=== PATIENT | female | born 1965 | race Caucasian/White ===

== ENCOUNTER 2022-12-04 16:38 | Outpatient (CLI) | payer BC | END 2022-12-04 16:39 | disposition home or self-care (01) | LOC: CSHRAD 16:38 | PROVIDERS: ATTEND Internal Medicine Rheumatology | DX: M54.50 Low back pain, unspecified (principal); M54.6 Pain in thoracic spine; M47.816 Spondylosis without myelopathy or radiculopathy, lumbar region | CPT/HCPCS: 72072; 72110 ==